=== PATIENT | male | born 1980 | race Two or more races ===

== ENCOUNTER 2018-03-17 17:18 | Emergency (ER) | payer OTHER ==
--- NOTE | 2018-03-17 19:42 | ER Document Report ---
ED General - General Chief Complaint: Abdominal Pain Stated Complaint: BACK PAIN Time Seen by Provider: 03/17/18 19:41 Mode of Arrival: Ambulatory Information source: Patient TRAVEL OUTSIDE OF THE [place] IN LAST 30 DAYS: No - HPI Notes: 37-year-old male presents emergency department for evaluation of right flank pain that started this morning. Patient denied any injury or trauma. Patient reports that there is pain with movement. He also notes that there is tightness when he bends. He denies any dysuria or hematuria. He denies any lower extremity weakness\numbness, bladder\bowel incontinence, or saddle paresthesias. He also denies any fever, abdominal pain, nausea, vomiting, or diarrhea. Past Medical History - General Information source: Patient - Social History Smoking Status: Current Some Day Smoker Chew tobacco use (# tins/day): No Drug Abuse: None Family History: None Patient has suicidal ideation: No Patient has homicidal ideation: No - Medical History Medical History: Negative Endocrine Medical History: Denies: Hx Diabetes Mellitus Type 2 Renal/ Medical History: Denies: Hx Peritoneal Dialysis Surgical Hx: Negative Review of Systems - Review of Systems Notes: Patient denied any lightheadedness, rash, joint pain, chest pain, or shortness of breath Physical Exam - Vital signs Vitals: Temp Pulse Resp BP Pulse Ox 98.8 F 92 17 139/79 H 100 03/17/18 17:28 03/17/18 17:28 03/17/18 17:28 03/17/18 17:28 03/17/18 17:28 - Notes Notes: PHYSICAL EXAMINATION: GENERAL: Well-appearing, well-nourished and in no acute distress. HEAD: Atraumatic, normocephalic. EYES: Pupils equal round and reactive to light, extraocular movements intact, sclera anicteric, conjunctiva are normal. LUNGS: Breath sounds clear to auscultation bilaterally and equal. No wheezes rales or rhonchi. HEART: Regular rate and rhythm without murmurs ABDOMEN: Soft, nontender, nondistended abdomen. No guarding, rigidity, rebound tenderness, or peritoneal signs. No pulsating masses appreciated. Bowel sounds normal in all 4 quadrants. BACK: There is tenderness to the right flank that is hot to the touch. No erythema or induration. No lymphangitis. No laceration or abrasion. No obvious signs of injury. No CVA tenderness NEUROLOGICAL: Normal gait, balance, speech, and facial symmetry PSYCH: Normal mood, normal affect. SKIN: As noted otherwise warm, Dry, normal turgor, no rashes or lesions noted. Course - Re-evaluation Re-evalutation: 03/17/18 20:16 Consistent with cellulitis. No evidence of abscess, AAA, UTI, pyelonephritis, or life-threatening illness. Patient was nontoxic or septic appearing in no acute or respiratory distress. Patient was afebrile and not hypoxic. Likelihood of other entities in the differential is insufficient to justify any further testing for them. I discussed care plan at length with patient. Any and all questions were answered. Discharged home with Bactrim and Motrin. Advised patient to follow-up with his PCP and to take medications as instructed. I also advised him to return immediately to the emergency department for any new, worsening, or concerning symptoms as discussed. He understands and agrees with plan. - Vital Signs Vital signs: Temp Pulse Resp BP Pulse Ox 98.8 F 92 17 139/79 H 100 03/17/18 17:28 03/17/18 17:28 03/17/18 17:28 03/17/18 17:28 03/17/18 17:28 Discharge - Discharge Clinical Impression: Cellulitis, right flank Condition: Good Disposition: HOME, SELF-CARE Instructions: Cellulitis ([facility]) Additional Instructions: Please follow-up with your primary care provider and take medications as instructed. Return immediately to the emergency department for any new, worsening, concerning symptoms as discussed. Prescriptions: Ibuprofen [Motrin 800 mg Tablet] 800 mg PO Q8H PRN #30 tab PRN Reason: Sulfamethoxazole/Trimethoprim [Bactrim Ds Tablet] 1 each PO BID #20 tablet
[2018-03-17 20:38] VITALS: BP 137/81
== END 2018-03-17 20:35 | disposition home or self-care (01) ==
LOC: ER 17:18
DX: L03.311 Cellulitis of abdominal wall (principal); F17.200 Nicotine dependence, unspecified, uncomplicated
CPT/HCPCS: 99283

== ENCOUNTER 2018-04-26 05:07 | Emergency (ER) | payer OTHER ==
--- NOTE | 2018-04-26 05:34 | ER Document Report ---
ED Medical Screen (RME) - General Chief Complaint: Bloody Stools Stated Complaint: STOMACH PAIN Time Seen by Provider: 04/26/18 05:26 Mode of Arrival: Ambulatory Information source: Patient Notes: Patient is a otherwise healthy 37-year-old male who presents with bloody stools 3 days. Patient reports that he does not have any diarrhea, he has normal bowel movements followed by bright red blood in the toilet. Patient denies any nausea or vomiting. Patient denies any fever or urinary symptoms. Patient reports he was seen here approximately 1 month ago and was placed on Bactrim for a possible cellulitis. Patient reports he only took approximately 4 days worth of the Bactrim and stopped taking it because he was feeling better. Patient denies any history of GI bleed or hemorrhoids. I have greeted and performed a rapid initial assessment of this patient. A comprehensive ED assessment and evaluation of the patient, analysis of test results and completion of the medical decision making process will be conducted by additional ED providers. Dictation of this chart was performed using voice recognition software; therefore, there may be some unintended grammatical errors. Exam: Abdomen soft, nontender, no rebound, no guarding. Lung sounds clear to auscultation bilaterally. TRAVEL OUTSIDE OF THE [place] IN LAST 30 DAYS: No COUNTRY TRAVELED TO/FROM: [place] Past Medical History Endocrine Medical History: Denies: Hx Diabetes Mellitus Type 2 Renal/ Medical History: Denies: Hx Peritoneal Dialysis Physical Exam - Vital signs Vitals: Temp Pulse Resp BP Pulse Ox 98.7 F 88 18 153/96 H 100 04/26/18 05:12 04/26/18 05:12 04/26/18 05:12 04/26/18 05:12 04/26/18 05:12 Course - Vital Signs Vital signs: Temp Pulse Resp BP Pulse Ox 98.7 F 88 18 153/96 H 100 04/26/18 05:12 04/26/18 05:12 04/26/18 05:12 04/26/18 05:12 04/26/18 05:12
[2018-04-26 05:55] LABS: ABSOLUTE BASOPHILS # (AUTO) 0.1 10^3/uL (0.0-0.2); ABSOLUTE EOSINOPHILS # (AUTO) 0.1 10^3/uL (0.0-0.6); ABSOLUTE LYMPHOCYTES (AUTO) 3.3 10^3/uL (0.5-4.7); ABSOLUTE MONOCYTES (AUTO) 0.6 10^3/uL (0.1-1.4); ABSOLUTE NEUT (AUTO) 2.6 10^3/uL (1.7-8.2); EOSINOPHILS % (AUTO) 1.4 % (0-6); HEMOGLOBIN 15.1 g/dL (13.5-17.0); LYMPHOCYTES % (AUTO) 49.9 % (13-45); MEAN CORPUSCULAR HEMOGLOBIN 26.8 pg (27.0-33.4); MEAN CORPUSCULAR HGB CONC 33.5 g/dL (32.0-36.0); MEAN CORPUSCULAR VOLUME 80 fl (80-97); MONOCYTES % (AUTO) 9.1 % (3-13); PLATELET COUNT 312 10^3/uL (150-450); RED BLOOD COUNT 5.61 10^6/uL (4.35-5.55); RED CELL DISTRIBUTION WIDTH 13.7 % (11.5-14.0); SEGMENTED NEUTROPHILS % (AUTO) 38.6 % (42-78); TOTAL CELLS COUNTED % (AUTO) 100 %; WHITE BLOOD COUNT 6.7 10^3/uL (4.0-10.5)
[2018-04-26 05:56] LABS: APPEARANCE,URINE CLEAR; BILIRUBIN,URINE NEGATIVE (NEGATIVE); COLOR,URINE YELLOW; GLUCOSE, URINE NEGATIVE (NEGATIVE); KETONES,URINE NEGATIVE (NEGATIVE); LEUKOCYTE ESTERASE,URINE NEGATIVE (NEGATIVE); NITRITE,URINE NEGATIVE (NEGATIVE); PROTEIN,URINE NEGATIVE (NEGATIVE); URINE SPECIFIC GRAVITY 1.019; UROBILINOGEN,URINE NEGATIVE mg/dL (<2.0)
[2018-04-26 06:05] LABS: ALANINE AMINOTRANSFERASE 48 U/L (21-72); ALBUMIN 4.8 g/dL (3.5-5.0); ALKALINE PHOSPHATASE 48 U/L (38-126); ANION GAP 14 (5-19); ASPARTATE AMINO TRANSFERASE 39 U/L (17-59); BILIRUBIN,DIRECT 0.3 mg/dL (0.0-0.4); BILIRUBIN,TOTAL 0.5 mg/dL (0.2-1.3); BLOOD UREA NITROGEN 13 mg/dL (7-20); CALCIUM 9.9 mg/dL (8.4-10.2); CARBON DIOXIDE 29 mmol/L (22-30); CHLORIDE 102 mmol/L (98-107); GLUCOSE 102 mg/dL (75-110); LIPASE 100.3 U/L (23-300); POTASSIUM 4.3 mmol/L (3.6-5.0); SODIUM 145.2 mmol/L (137-145); TOTAL PROTEIN 8.5 g/dL (6.3-8.2)
[2018-04-26] MEDS ORDERED: NORMAL SALINE 1000 ML 1,000 ML IV ONE (06:23)
[2018-04-26] MEDS ORDERED: LANSOPRAZOLE 15 MG TAB.RAP.DR PO ONE (06:48)
--- NOTE | 2018-04-26 06:49 | ER Document Report ---
ED General - General Chief Complaint: Bloody Stools Stated Complaint: STOMACH PAIN Time Seen by Provider: 04/26/18 05:26 Mode of Arrival: Ambulatory TRAVEL OUTSIDE OF THE [place] IN LAST 30 DAYS: No COUNTRY TRAVELED TO/FROM: [facility] Patient complains to provider of: Blood in stool Notes: Patient coming in for bright red blood per stool for the last few bowel movement. Patient states he does drink alcohol daily has not been taking any anti-inflammatory medications. Patient denies any abdominal pain nausea vomiting fevers or chills. Patient states he is otherwise does not have any medical issues not take any other medications. Patient states drinks approximately 1 or 222/24 ounce beers a day. Patient otherwise upon my evaluation resting company no other complaints - Related Data Allergies/Adverse Reactions: No Known Allergies Allergy (Unverified 04/26/18 06:49) Past Medical History - General Information source: Patient - Social History Smoking Status: Never Smoker Chew tobacco use (# tins/day): No Frequency of alcohol use: Social Drug Abuse: None Family History: None Patient has suicidal ideation: No Patient has homicidal ideation: No Endocrine Medical History: Denies: Hx Diabetes Mellitus Type 2 Renal/ Medical History: Denies: Hx Peritoneal Dialysis Review of Systems - Review of Systems Constitutional: No symptoms reported EENT: No symptoms reported Cardiovascular: No symptoms reported Respiratory: No symptoms reported Gastrointestinal: Rectal bleeding Genitourinary: No symptoms reported Male Genitourinary: No symptoms reported Musculoskeletal: No symptoms reported Skin: No symptoms reported Hematologic/Lymphatic: No symptoms reported Neurological/Psychological: No symptoms reported -: Yes All other systems reviewed and negative Physical Exam - Vital signs Vitals: Temp Pulse Resp BP Pulse Ox 98.7 F 88 18 153/96 H 100 04/26/18 05:12 04/26/18 05:12 04/26/18 05:12 04/26/18 05:12 04/26/18 05:12 Interpretation: Normal - General General appearance: Appears well, Alert - HEENT Head: Normocephalic, Atraumatic Eyes: Normal Pupils: PERRL - Respiratory Respiratory status: No respiratory distress Chest status: Nontender Breath sounds: Normal Chest palpation: Normal - Cardiovascular Rhythm: Regular Heart sounds: Normal auscultation Murmur: No - Abdominal Inspection: Normal Distension: No distension Bowel sounds: Normal Tenderness: Nontender Organomegaly: No organomegaly - Rectal Notes: Rectal exam reveals no hemorrhoids light brown stool in rectal examination on the occult cord 1 window for testing did have a few specks of blue the second window had no blue to control was positive. Very minimal signs of microscopic blood - Back Back: Normal, Nontender - Extremities General upper extremity: Normal inspection, Nontender, Normal color, Normal ROM , Normal temperature General lower extremity: Normal inspection, Nontender, Normal color, Normal ROM , Normal temperature, Normal weight bearing. No: Thania's sign - Neurological Neuro grossly intact: Yes Cognition: Normal Orientation: AAOx4 [place] Coma Scale Eye Opening: Spontaneous [place]en Coma Scale Verbal: Oriented [place] Coma Scale Motor: Obeys Commands [place] Coma Scale Total: 15 Speech: Normal Motor strength normal: LUE, RUE, LLE, RLE Sensory: Normal - Psychological Associated symptoms: Normal affect, Normal mood - Skin Skin Temperature: Warm Skin Moisture: Dry Skin Color: Normal Course - Re-evaluation Re-evalutation: 04/26/18 16:01 The patient's history of alcohol drinking possible gastritis for the blood that were seen. Otherwise hemodynamically stable complains of no weakness no dizziness no abdominal pain. Patient will be started on omeprazole and nausea medication. Did educate the patient about abstaining from alcohol drinking and follow-up with GI specialist. Patient states understanding - Vital Signs Vital signs: Temp Pulse Resp BP Pulse Ox 98.6 F 83 16 143/96 H 99 04/26/18 06:57 04/26/18 06:57 04/26/18 06:57 04/26/18 06:57 04/26/18 06:57 - Laboratory Result Diagrams: 04/26/18 05:42 04/26/18 05:42 Laboratory results interpreted by me: 04/26/18 04/26/18 04/26/18 05:42 05:42 05:42 RBC 5.61 H MCH 26.8 L Seg Neutrophils % 38.6 L Lymphocytes % 49.9 H Sodium 145.2 H Total Protein 8.5 H Urine Blood MODERATE H Discharge - Discharge Clinical Impression: Blood in stool Condition: Good Disposition: HOME, SELF-CARE Instructions: Positive Test for Blood in Stool ([facility]) Additional Instructions: Laboratory examination today does not show any signs of any however he did have a small amount of blood seen on the rectal exam in your stool. This more likely is caused from alcohol drinking causing inflammation of your stomach. I recommend to stop drinking alcohol. We will start you on a medication called omeprazole to help with the bleeding and inflammation that I think is going on with her stomach. Also sending home medication Reglan to help out with any nausea that she may have. Please make sure you are drinking plenty of water to stay hydrated. Would highly recommend to call the GI specialist listed on Saturday to schedule follow-up appointment. Return to ER for any other concerns. Prescriptions: Metoclopramide HCl [Reglan] 5 mg PO Q6 #30 tablet Omeprazole 20 mg PO DAILY #30 capsule.dr Referrals: DELFINA BROWN MD [ACTIVE STAFF] - Follow up as needed
[2018-04-26 07:03] VITALS: BP 143/96
== END 2018-04-26 06:57 | disposition home or self-care (01) ==
LOC: ER 05:07
DX: K92.1 Melena (principal)
CPT/HCPCS: 36415; 80053; 81001; 83690; 85025; 99284